=== PATIENT | female | born 1960 | race Hispanic/Latino ===

== ENCOUNTER 2019-02-28 13:17 | Emergency (ER) | payer OTHER ==
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
[2019-02-28 13:29] VITALS: BP 137/82
[2019-02-28] MEDS ORDERED: IBUPROFEN PO ONE (13:48)
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
== END 2019-02-28 15:09 | disposition home or self-care (01) ==
LOC: ED 13:17
DX: T74.21XA Adult sexual abuse, confirmed, initial encounter (principal); G89.29 Other chronic pain; Z98.890 Other specified postprocedural states; Z88.6 Allergy status to analgesic agent; Y92.89 Other specified places as the place of occurrence of the external cause
CPT/HCPCS: 99283